=== PATIENT | male | born 1955 | race Caucasian/White ===

== ENCOUNTER 2022-01-07 06:00 | Outpatient (RCR) | payer OTHER, MEDICARE, SELFPAY | END 2022-01-16 23:59 | disposition home or self-care (01) | LOC: MPT 06:00 | PROVIDERS: Visit Provider Internal Medicine | DX: M54.2 Cervicalgia (principal); M54.59 Other low back pain | CPT/HCPCS: 97110; 97140; 97162 ==

== ENCOUNTER 2022-01-17 06:00 | Outpatient (RCR) | payer OTHER, MEDICARE, SELFPAY | END 2022-02-15 23:59 | disposition home or self-care (01) | LOC: MPT 06:00 | PROVIDERS: Visit Provider Internal Medicine | DX: M54.2 Cervicalgia (principal); M54.59 Other low back pain | CPT/HCPCS: 97110; 97140 ==

== ENCOUNTER 2022-02-16 06:00 | Outpatient (RCR) | payer OTHER, MEDICARE, SELFPAY | END 2022-03-18 23:59 | disposition home or self-care (01) | LOC: MPT 06:00 | PROVIDERS: Visit Provider Internal Medicine | DX: M54.2 Cervicalgia (principal); M54.59 Other low back pain | CPT/HCPCS: 97110; 97140 ==